=== PATIENT | female | born 1975 | race Two or more races ===

== ENCOUNTER 2022-03-27 21:05 | Emergency (ER) | payer MEDICAID ==
[~2022-03-27] VITALS: Ht 167.6 cm; Wt 67.6 kg
[2022-03-28] MEDS ORDERED: IV NS 1000 ML 1,000 ML IV ONE
[2022-03-28] MEDS ORDERED: ONDANSETRON 4 MG/2 ML VIAL IV ONE
--- NOTE | 2022-03-28 00:03 | NUR ---
pt in room 5a c/o nausea after drinking coffee.
[2022-03-28] MEDS ORDERED: ONDANSETRON 4 MG/2 ML VIAL ONE (00:18)
[2022-03-28 00:46] LABS: CARBON DIOXIDE 23 mmol/L (21-32); CHLORIDE 99 mmol/L (98-107); CREATININE 0.7 mg/dL (0.6-1.3); GLUCOSE 111 mg/dL (74-106); POTASSIUM 4.3 mmol/L (3.5-5.1); UREA NITROGEN, BLOOD 5 mg/dL (7-18)
[2022-03-28 00:57] LABS: *BILIRUBIN,URIN NEGATIVE (NEGATIVE); *CLARITY,URINE CLEAR (CLEAR); *COLOR,URINE LIGHT YELLOW (YELLOW); *KETONES,URINE NEGATIVE (NEGATIVE); *UROBILINOGEN,URINE 0.2 E.U./dl (NORMAL); LEUKOCYTE ESTERASE ,URINE NEGATIVE (NEGATIVE); NITRITE, URINE NEGATIVE (NEGATIVE); UGLUCOSE NEGATIVE (NEGATIVE)
[2022-03-28 00:59] LABS: *BLOOD, URINE TRACE INTACT (NEGATIVE); *URINE HCG, QUAL NEGATIVE (NEGATIVE)
[2022-03-28 01:09] LABS: HEMATOCRIT 39.7 % (31.2-41.9); MEAN CORPUSCULAR HEMOGLOBIN 28.4 uug (24.7-32.8); MEAN CORPUSCULAR VOLUME 85.3 fL (75.5-95.3); PLATELET COUNT (AUTO) 406 K/uL (179-408)
--- NOTE | 2022-03-28 02:27 | NUR ---
Dr. Sotomayor in room to speak with pt for discharge instructions.
--- NOTE | 2022-03-28 02:35 | NUR ---
Patient discharged to home in stable condition. Written and verbal after care instructions given. Patient verbalizes understanding of instructions. Stressed follow up or return to ER for worsening s/s.
[2022-03-28 02:36] VITALS: BP 130/75
[2022-03-28 07:26] LABS: BACTERIA,URINE FEW /HPF (NONE SEEN); RBC,URINE 0-3 /HPF (0-3); SQUAMOUS EPITHELIAL CELL,UR FEW /HPF (NONE SEEN); WBC,URINE 0-3 /HPF (0-3)
== END 2022-03-28 02:36 | disposition home or self-care (01) ==
LOC: ER 21:05
DX: R53.1 Weakness (principal); R11.0 Nausea; R42 Dizziness and giddiness; E87.1 Hypo-osmolality and hyponatremia
CPT/HCPCS: 80048; 81001; 84703; 85025; 84484; 36415; 93005; 99284; 96374; 96361; J2405; J7040; A4663